=== PATIENT | male | born 1985 | race Caucasian/White ===

== ENCOUNTER 2017-07-23 11:23 | Emergency (ER) | payer SELFPAY ==
[2017-07-23 12:09] VITALS: BP 134/68
--- NOTE | 2017-07-23 12:55 | UC ---
Knee Pain HPI - HPI Summary HPI Summary: Pt presents with right knee pain for 3 months. He tells me that over the last week his pain has gotten worse. He further aggravated his pain by twisting his knee 3-4 days ago. 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 He denies specific injury initially. He is able to ambulate, but with a significant limp. Denies fever, chills, hx of pain/injury or previous surgery. - History of Current Complaint Chief Complaint: UCLowerExtremity Stated Complaint: KNEE INJURY Time Seen by Provider: 07/23/17 12:27 Hx Obtained From: Patient Onset/Duration: Gradual Onset Severity Initially: Moderate Severity Currently: Moderate Pain Intensity: 5 Pain Scale Used: 0-10 Numeric Aggravating Factor(s): Movement, Weight Bearing Alleviating Factor(s): Rest PMH/Surg Hx/FS Hx/Imm Hx Previously Healthy: Yes - Surgical History Surgical History: None - Family History Known Family History: Positive: Unknown - Social History Occupation: Employed Full-time Lives: With Family Alcohol Use: Occasionally Substance Use Type: None Smoking Status (MU): Heavy Every Day Tobacco Smoker Cessation Counseling: Counseled 3+Min - 10 Min Review of Systems Constitutional: Negative Skin: Negative Respiratory: Negative Cardiovascular: Negative Motor: Negative Neurovascular: Negative Musculoskeletal: Decreased ROM - Right knee, Edema - Right knee, Other: - Right knee pain Neurological: Negative Psychological: Negative All Other Systems Reviewed And Are Negative: Yes Physical Exam Triage Information Reviewed: Yes Appearance: Well-Appearing, No Pain Distress, Well-Nourished Vital Signs: Initial Vital Signs Temp 98.4 F 07/23/17 12:06 Pulse 69 07/23/17 12:06 Resp 12 07/23/17 12:06 BP 134/68 07/23/17 12:06 Pulse Ox 100 07/23/17 12:06 Vital Signs Reviewed: Yes Neck: Positive: Supple, Nontender, No Lymphadenopathy Respiratory: Positive: Lungs clear, Normal breath sounds, No respiratory distress, No accessory muscle use Cardiovascular: Positive: RRR, No Murmur, Pulses Normal - Right Popliteal, TP, DP Musculoskeletal: Positive: Strength Intact - Right knee, ROM Limited @ - Right knee due to pain, Edema @ - Right knee - mild, Other: - No obvious bony deformities. No patella apprehension. Negative Mars, A/P drawer, Jennifer, and varus/valgus stress. Neurological: Positive: Alert, Other: - Right LE sensations intact Psychological: Positive: Age Appropriate Behavior Skin: Negative: rashes Knee Pain Course/Dx - Course Course Of Treatment: Knee XR: IMPRESSION: Normal knee radiograph as described above. ISA wrap, crutches, and ibuprofen prn. - Differential Dx/Diagnosis Provider Diagnoses: Right knee pain Discharge - Discharge Plan Condition: Stable Disposition: HOME Patient Education Materials: Knee Pain (ED) Forms: *Work Release Referrals: No Primary Care Phys,NOPCP [Primary Care Provider] - Manuel Dick MD [Medical Doctor] - As Soon As Possible Additional Instructions: If you develop a fever, shortness of breath, chest pain, new or worsening symptoms - please call your PCP or go to the ED. 1) Rest, Ice, and Elevate your knee as much as possible over the next 24-48 hours. 2) Use the crutches as needed for comfort 3) May take ibuprofen 800mg every 6-8 hours as needed for pain and swelling 4) Please call Orthopedics at the number below to schedule a follow up appointment regarding your knee pain.
--- NOTE | 2017-07-23 13:26 | RAD ---
INDICATION: Right knee pain and swelling COMPARISON: None TECHNIQUE: 4 view radiograph of the right knee. FINDINGS: The visualized bones are well-corticated and properly aligned. The joint spaces are properly maintained. There is no radiographic evidence of joint effusion. There is no acute fracture, dislocation or other focal bony abnormality. IMPRESSION: Normal knee radiograph as described above. If the patient's symptoms persist, follow-up imaging is recommended.
== END 2017-07-23 13:45 | disposition home or self-care (01) ==
LOC: UCEAST 11:23
DX: M25.561 Pain in right knee (principal); Z71.6 Tobacco abuse counseling; F17.200 Nicotine dependence, unspecified, uncomplicated
CPT/HCPCS: 99202; G0463

== ENCOUNTER 2017-10-04 06:27 | Day surgery (SDC) | payer OTHER ==
--- NOTE | 2017-09-14 10:30 | HP ---
HISTORY AND PHYSICAL: DATE OF ADMISSION/SURGERY: 10/04/17 SURGEON: Charis Duque MD. * (DICTATED BY LETTY BUCHANAN) PROCEDURE: Right knee arthroscopy with partial medial meniscectomy, possible chondroplasty, possible synovectomy. CHIEF COMPLAINT: Right knee pain. HISTORY OF PRESENT ILLNESS: Mr. Aguilar is a 32-year-old gentleman with complaints of right knee pain. An MRI confirms a medial meniscus tear and he has elected to proceed with surgery, which is scheduled for 10/04/[address] Duque. PAST MEDICAL HISTORY: Denies. PAST SURGICAL HISTORY: 1. Appendectomy. 2. Hernia repair. 3. Tonsillectomy. CURRENT MEDICATIONS: None. ALLERGIES: None. FAMILY HISTORY: Denies. SOCIAL HISTORY: He is a 32-year-old gentleman who lives with his girlfriend. He works for a [employer]. He smokes a pack a day. He denies use of drugs. He uses occasional alcohol. REVIEW OF SYSTEMS: A complete 14-point review of systems was reviewed with the patient, it is all negative or noncontributory. PHYSICAL EXAMINATION GENERAL: He is well developed, well nourished, in no acute distress. VITAL SIGNS: He stands 72 inches tall, weighs 200 pounds. His blood pressure is 134/82, his heart rate is 64. HEENT: Normocephalic, atraumatic. NECK: Supple. No palpable lymph nodes. PULMONARY: The lungs are clear to auscultation bilaterally. CARDIAC: Regular rate and rhythm. Strong S1, S2. ABDOMEN: Soft, nontender, and nondistended. MUSCULOSKELETAL: Right lower extremity, the skin is intact. There is no open wounds or abrasions. There is some mild joint effusion. He has some tenderness over the medial joint line. Positive Jennifer's. Negative Mars' s. 2+ dorsalis pedis pulses. He has intact sensation and his lower extremity muscle group strengths are intact at 5/5. NEUROLOGICAL: He is alert and oriented x3. Cranial nerves II through XII are intact. ASSESSMENT AND PLAN: Mr. Aguilar is a 32-year-old gentleman with complaints of right knee pain. An MRI confirms the medial meniscus tear and he has elected to proceed with the right knee arthroscopy with partial medial meniscectomy, possible chondroplasty, possible synovectomy with surgery scheduled for 10/04/[address] Duque discussed the risks and benefits of the surgery at today's visit, all of his questions were answered. He will follow up with Dr. Duque 2 weeks after the surgery. LETTY BUCHANAN [id number]/[facility] #: [id number] MYLA
[~2017-10-04 06:27] MED LIST: Buffered Lidocaine 0.9% SYRIN* 5 ML/SYR SYRINGE INTRADERM ONE; DiMENhydriNATE IV* 50 MG/ML VIAL IV PUSH PRN; Famotidine TAB* 20 MG PO ONE; Morphine INJ* 2 MG/ML 1 ML CARPUJECT IV PRN; Naloxone* 0.4 MG/ML 1 ML VIAL IV PRN; PROCHLORPERAZINE INJ 5 MG/ML 2 ML VIAL IV PRN; Scopolamine 1.5 mg* PATCH TRANSDERM PRN; fentaNYL* 50 MCG/ML 2 ML VIAL (100 MCG VIAL) IV PRN; oxyCODONE/Acetamin 5/325 MG* TAB PO PRN
[2017-10-04] MEDS ORDERED: ceFAZolin 2 GM PREMIX (*) 2 GM/50 ML BAG IVPB ONE (07:03)
[2017-10-04] MEDS ORDERED: Famotidine TAB* 20 MG ONE (07:03)
[2017-10-04] MEDS ORDERED: Midazolam* 1 MG/ML 5 ML VIAL (5 MG) ONE (07:28)
[2017-10-04] MEDS ORDERED: fentaNYL* 50 MCG/ML 2 ML VIAL (100 MCG VIAL) ONE (07:28)
[2017-10-04] MEDS ORDERED: Ondansetron INJ* 2 MG/ML VIAL ONE (09:03)
[2017-10-04] MEDS ORDERED: Propofol* 10 MG/ML 20 ML BTL IV PUSH ONE (09:03)
[2017-10-04] MEDS ORDERED: Lidocaine 2% PF * 5 ML VIAL ONE (09:03)
[2017-10-04] MEDS ORDERED: Ketorolac INJ* 30 MG/ML 1 ML VIAL ONE (09:03)
[2017-10-04] MEDS ORDERED: EPHEDrine (Pressors)* 50 MG/ML VIAL ONE (09:03)
[2017-10-04] MEDS ORDERED: Dexamethasone IV* 4 MG/ML 1 ML (4 MG) ONE (09:03)
[2017-10-04 09:59] VITALS: BP 144/85
--- NOTE | 2017-10-05 04:53 | OP ---
DATE OF OPERATION: 10/04/17 - [facility] DATE OF : 81 SURGEON: Chairs Duque MD [employer] OPERATOR: LETTY Barrientos ANESTHESIOLOGIST: Dr. Dorsey. ANESTHESIA: General. PRE-OP DIAGNOSIS: Right knee medial meniscal tear. POST-OP DIAGNOSIS: Right knee medial meniscal tear, medial plica. OPERATIVE PROCEDURE: Right knee arthroscopy with partial medial meniscotomy and medial plica excision. COMPLICATIONS: None. ESTIMATED BLOOD LOSS: Less than 25 cc. SPECIMEN: None. BRIEF HISTORY/INDICATIONS: Mr. Aguilar is a 32-year-old gentleman with acute onset of right knee pain, swelling and mechanical symptoms. History and physical exam were consistent with medial meniscal tear and this was confirmed on MRI. Conservative treatment failed and the patient elected to undergo right knee arthroscopy with partial medial meniscectomy. Informed consent was obtained from the patient. He understood the risk for surgery included but were not limited to bleeding, infection, damage to nearby structures, continued pain, need for further surgery, stroke, heart attack, blood clot and . He wished to proceed. INTRAOPERATIVE FINDINGS: Intraoperatively, the patient was noted to have a parrot- beak type tear in the mid portion of the medial meniscus. This was in the white-red zone. This did displace with range of motion of the knee. He also was noted to have a large medial plica which impinged along the patellofemoral joint with range of motion. DESCRIPTION OF PROCEDURE: Mr. Aguilar was identified in the preanesthesia unit. His right lower extremity was marked as a correct operative site. Informed consent was signed and placed in chart. The patient was taken to the operating room and placed under general anesthesia. Right lower extremity was prepped and draped in the usual sterile fashion. Preop time-out was made to correctly identify the patient side and site. Appropriate perioperative antibiotics were given within 1 hour of incision. A 0.5 cm anterolateral portal incision was made with a 15 blade. This was carried down through the capsule layer. Trocar was introduced. As soon as the light and water sources were turned on, there was immediate visualization of the suprapatellar pouch. A tour was performed. Suprapatellar pouch had no significant abnormalities. Patellofemoral compartments had no significant degenerative changes. There was a large medial plica which did impinge along the patellofemoral joint with range of motion. Medial gutters showed no loose body. Medial compartment showed no significant degenerative changes, some minimal grade 2 and perhaps 3 Outerbridge cartilage changes along the medial femoral condyle in a small area of the femoral condylar weightbearing surface. There was an anteriorly displaced parrot-beak type tear involving the middle third of the medial meniscus. ACL and PCL appeared to be intact. The knee was placed in the [id number] position. There were no significant degenerative changes. No obvious meniscal tear. Lateral gutters showed no loose body or other abnormality. Under direct visualization, a medial portal incision was made with a 15-blade. Probe was introduced and a second tour of the knee joint was performed. There were no additional findings noted. Radiofrequency ablation wand and shaver were used to excise the medial plica in a conservative fashion. This was performed until there was no further impingement with range of motion on the patellofemoral joint. A straight biter was used to perform partial medial meniscectomy. Shaver was used to further smooth the edge of the meniscus. Radiofrequency ablation wand was also used to smooth the edge of the meniscus. Probing of the medial meniscus shows no additional tears or slipped fragments. The knee was copiously irrigated with sterile saline. All instruments were reviewed. Incisions were closed using 3-0 nylon suture. Intraarticular injection of 80 mg Depo-Medrol and 6 cc of 0.25% Marcaine was placed in the knee joint. Incisions were covered with sterile Xeroform, 4x4s and Webril. Lewis wrap and cold pack were placed over this. The patient's anesthesia was reversed without difficulty. He was taken to the PACU in stable condition. Intended weightbearing will be weightbearing as tolerated. Intended DVT prophylaxis will be Coumadin with Lovenox bridge. [id number]/[facility] #: [id number] MYLA
[2017-10-07] MEDS ORDERED: Scopolamine PATCH Remove* 1 NOTE MISC PATCH OFF ONE (05:52)
== END 2017-10-04 10:02 | disposition home or self-care (01) ==
LOC: OR 06:27
PROVIDERS: ATTEND Orthopaedic Surgery Adult Reconstructive Orthopaedic Surgery
DX: M23.203 Derangement of unspecified medial meniscus due to old tear or injury, right knee (principal); M67.51 Plica syndrome, right knee; F17.210 Nicotine dependence, cigarettes, uncomplicated
CPT/HCPCS: A9270-GY; J0690; J1100; J1885; J2250; J2405; J2704; J3010

== ENCOUNTER 2018-01-17 14:51 | Day surgery (SDC) | payer OTHER ==
[2018-01-17 15:46] LABS: ABS Basophils 0.1 10^3/ul (0-0.2); ABS Eosinophils 0 10^3/ul (0-0.6); ABS Lymphocytes 1.2 10^3/ul (1.0-4.8); ABS Monocytes 0.5 10^3/ul (0-0.8); ABS Neutrophils 11.7 10^3/ul (1.5-7.7); ABS Nucleated RBC 0 10^3/ul; Eosinophil % 0.3 % (0-6); Hematocrit 50 % (42-52); Hemoglobin 17.4 g/dl (14.0-18.0); Lymphocyte % 8.6 % (25-47); Mean Corpuscular HGB Conc 35 g/dl (31-36); Mean Corpuscular Hemoglobin 31 pg (27-31); Mean Corpuscular Volume 90 fL (80-94); Mean Platelet Volume 7.7 um3 (7.4-10.4); Nucleated Red Blood Cells % 0.2; Platelet Count 282 10^3/ul (150-450); Red Blood Count 5.55 10^6/ul (4.00-5.40); Red Cell Distribution Width 13 % (10.5-15); White Blood Count 13.5 10^3/ul (3.5-10.8)
[2018-01-17 16:04] LABS: EGFR Non-African American 82.7 (>60)
[2018-01-17] MEDS ORDERED: Ondansetron INJ* 2 MG/ML VIAL IV PRN (16:58)
[2018-01-17] MEDS ORDERED: NS 0.9% 1000 ML* 1,000 ML IV ONE (16:58)
[2018-01-17] MEDS ORDERED: Morphine VIAL* 10 MG/ML 1 ML VIAL IV ONE (16:58)
[2018-01-17] MEDS ORDERED: Iohexol 300* (CONTRAST) 10 ML SDV IV ONE (17:08)
[2018-01-17] MEDS ORDERED: Morphine INJ* 2 MG/ML 1 ML SYRINGE (TWO MG - NEW SYRINGE VERSION) ONE (17:13)
--- NOTE | 2018-01-17 17:39 | ED ---
Abdominal Pain/Male - HPI Summary HPI Summary: Complains of right lower quadrant pain, N/V, sweats, chills starting at 8 AM this morning. Abdominal pain described as constant, better with lying down, worse with movement. Patient has been able to keep any food or medication down today. Denies fever, cough, sore throat, CP, SOB, change in bowel movements, change in urine, penile discharge, testicular pain. Medical history is none. Abdominal/pelvic surgical history is appendectomy November 2013. - History of Current Complaint Chief Complaint: EDAbdPain Stated Complaint: ABD PAIN Time Seen by Provider: 01/17/18 16:04 Hx Obtained From: Patient Onset/Duration: Sudden Onset Timing: Constant Severity Initially: Moderate Severity Currently: Moderate Pain Intensity: 7 Pain Scale Used: 0-10 Numeric Location: Discrete At: RLQ Radiates: No Character: Sharp Aggravating Factor(s): Movement Alleviating Factor(s): Position Associated Signs And Symptoms: Positive: Nausea, Vomiting - Allergies/Home Medications Allergies/Adverse Reactions: Allergies Allergy/AdvReac Type Severity Reaction Status Date / Time peanut Allergy Intermediate Hives Verified 01/17/18 17:02 PEANUT BUTTER Allergy Hives Uncoded 10/04/17 07:07 Home Medications: Home Medications NK [No Home Medications Reported] 01/17/18 [History Confirmed 01/17/18] PMH/Surg Hx/FS Hx/Imm Hx Endocrine/Hematology History: Denies: Hx Anticoagulant Therapy, Hx Diabetes, Hx Thyroid Disease Cardiovascular History: Denies: Hx Hypertension, Hx Pacemaker/ICD, Other Cardiovascular Problems/ Disorders Respiratory History: Denies: Other Respiratory Problems/Disorders GI History: Reports: Other GI Disorders - Appendectomy 2012 History: Denies: Hx Dialysis, Hx Renal Disease, Other Problems/Disorders Musculoskeletal History: Reports: Other Musculoskeletal History - Right medial meniscus tear, effusion, hernia repair x2 Denies: Hx Rheumatoid Arthritis, Hx Osteoporosis Sensory History: Denies: Hx Contacts or Glasses, Hx Hearing Aid Opthamlomology History: Denies: Hx Contacts or Glasses Neurological History: Denies: Hx CVA, Other Neuro Impairments/Disorders Psychiatric History: Denies: Hx Panic Disorder - Surgical History Surgery Procedure, Year, and Place: APPENDECTOMY - 2013. HERNIA x2 - as a child. Tonsillectomy Hx Anesthesia Reactions: No Infectious Disease History: No Infectious Disease History: Denies: Traveled Outside the [place] in Last 30 Days - Family History Known Family History: Positive: Unknown - Social History Alcohol Use: Weekly Substance Use Type: Reports: None Smoking Status (MU): Heavy Every Day Tobacco Smoker Type: Cigarettes Amount Used/How Often: 1 ppd Length of Time of Smoking/Using Tobacco: 20 + years Have You Smoked in the Last Year: Yes Review of Systems Positive: Chills Eyes: Negative ENT: Negative Cardiovascular: Negative Respiratory: Negative Positive: Abdominal Pain, Vomiting, Nausea Genitourinary: Negative Musculoskeletal: Negative Skin: Negative Neurological: Negative Psychological: Normal All Other Systems Reviewed And Are Negative: Yes Physical Exam - Summary Physical Exam Summary: Diffusely tender, worse in right lower quadrant. Triage Information Reviewed: Yes Vital Signs On Initial Exam: Initial Vitals Temp Pulse Resp BP Pulse Ox 97 F 55 18 143/79 99 01/17/18 14:57 01/17/18 14:57 01/17/18 14:57 01/17/18 14:57 01/17/18 14:57 Vital Signs Reviewed: Yes Appearance: Positive: Well-Appearing Skin: Positive: Warm Head/Face: Positive: Normal Head/Face Inspection Eyes: Positive: Normal Neck: Positive: Supple Respiratory/Lung Sounds: Positive: Clear to Auscultation Cardiovascular: Positive: Normal Abdomen Description: Positive: McBurney's Point Tenderness Musculoskeletal: Positive: Normal Neurological: Positive: Normal Psychiatric: Positive: Normal AVPU Assessment: Alert - Candice Coma Scale Best Eye Response: 4 - Spontaneous Best Motor Response: 6 - Obeys Commands Best Verbal Response: 5 - Oriented Coma Scale Total: 15 Diagnostics - Vital Signs Vital Signs Temp Pulse Resp BP Pulse Ox 01/17/18 17:23 16 01/17/18 14:57 97 F 55 18 143/79 99 - Laboratory Lab Results: Lab Results 01/17/18 01/17/18 01/17/18 Range/Units 15:28 15:28 15:28 WBC 13.5 H (3.5-10.8) 10^3/ul RBC 5.55 H (4.00-5.40) 10^6/ul Hgb 17.4 (14.0-18.0) g/dl Hct 50 (42-52) % MCV 90 (80-94) fL MCH 31 (27-31) pg MCHC 35 (31-36) g/dl RDW 13 (10.5-15) % Plt Count 282 (150-450) 10^3/ul MPV 7.7 (7.4-10.4) um3 Neut % (Auto) 86.5 H (38-83) % Lymph % (Auto) 8.6 L (25-47) % [place] % (Auto) 4.0 (0-7) % Eos % (Auto) 0.3 (0-6) % Baso % (Auto) 0.6 (0-2) % Absolute Neuts (auto) 11.7 H (1.5-7.7) 10^3/ul Absolute Lymphs (auto) 1.2 (1.0-4.8) 10^3/ul Absolute Monos (auto) 0.5 (0-0.8) 10^3/ul Absolute Eos (auto) 0 (0-0.6) 10^3/ul Absolute Basos (auto) 0.1 (0-0.2) 10^3/ul Absolute Nucleated RBC 0 10^3/ul Nucleated RBC % 0.2 Sodium 140 (135-145) mmol/L Potassium 4.2 (3.5-5.0) mmol/L Chloride 101 (101-111) mmol/L Carbon Dioxide 31 (22-32) mmol/L Anion Gap 8 (2-11) mmol/L BUN 13 (6-24) mg/dL Creatinine 1.03 (0.67-1.17) mg/dL Est GFR ( Amer) 100.0 (>60) Est GFR (Non-Af Amer) 82.7 (>60) BUN/Creatinine Ratio 12.6 (8-20) Glucose 131 H (70-100) mg/dL Lactic Acid 0.9 (0.5-2.0) mmol/L Calcium 10.0 (8.6-10.3) mg/dL Total Bilirubin 0.40 (0.2-1.0) mg/dL AST 15 (13-39) U/L ALT 17 (7-52) U/L Alkaline Phosphatase 117 H (34-104) U/L C-Reactive Protein 5.14 (<8.01) mg/L Total Protein 7.6 (6.4-8.9) g/dL Albumin 4.9 (3.2-5.2) g/dL Globulin 2.7 (2-4) g/dL Albumin/Globulin Ratio 1.8 (1-3) Lipase < 10 L (11.0-82.0) U/L Result Diagrams: 01/17/18 15:28 01/17/18 15:28 Lab Statement: Any lab studies that have been ordered have been reviewed, and results considered in the medical decision making process. - CT ab/pel CT Interpretation: Positive (See Comments) - Potential appendicolith CT Interpretation Completed By: Radiologist Abdominal Pain Fem Course/Dx - Course Course Of Treatment: Complains of right lower quadrant pain, N/V, sweats, chills starting at 8 AM this morning. Abdominal pain described as constant, better with lying down, worse with movement. Patient has been able to keep any food or medication down today. Denies fever, cough, sore throat, CP, SOB, change in bowel movements, change in urine, penile discharge, testicular pain. Medical history is none. Abdominal/pelvic surgical history is appendectomy November 2013. Diffusely tender, worse in right lower quadrant. Vital signs within normal limits and stable. Elevated white count 13.5. CT positive for possible appendicolith despite history of appendectomy. Discussed patient with Dr Gilbert who will admit for surgery - Diagnoses Provider Diagnoses: Appendicolith Discharge - Sign-Out/Discharge Documenting (check all that apply): Patient Departure - Discharge Plan Condition: Fair Disposition: ADMITTED TO [facility] - Billing Disposition and Condition Condition: FAIR Disposition: Admitted to [facility]
--- NOTE | 2018-01-17 18:23 | RAD ---
CLINICAL HISTORY: Right lower quadrant pain. Relevant surgical history includes an appendectomy. COMPARISON: None TECHNIQUE: Contrast enhanced CT examination of the abdomen and pelvis from the lung bases through the initial tuberosities. The patient received 105 mL Omnipaque 300 intravenously prior to imaging.Patient did not receive any oral contrast. FINDINGS: VISUALIZED LUNG BASES: The visualized lung bases are grossly clear. There is no pleural effusion. ABDOMEN AND PELVIS: The liver, spleen, pancreas and adrenal glands are grossly normal in appearance. The gallbladder is normal. The kidneys are normal in appearance without focal mass, calcification or signs of hydronephrosis. Evaluation of the gastrointestinal tract is limited the absence of oral contrast. The small and large bowel are not distended. At the right lower quadrant contiguous with the base of the cecum there is what appears to be a fluid-filled tubular structure measuring 1.5 cm in diameter (sagittal image 52). In the segment of this tubular structure that is more proximal to the base of the cecum there is a hyperattenuating focus measuring 9 mm in greatest dimension (coronal image 36). This finding appears to be separate from the ileocecal junction as identified on coronal plane image 37. More distally the colon does not exhibit any obvious abnormalities. There is no gross retroperitoneal or mesenteric lymphadenopathy. The pelvic viscera is normal in appearance. The abdominal aorta and iliac arteries are normal in course and diameter. \\There are no sinister bone lesions. IMPRESSION: At the base of the cecum there is what appears to be a contiguous fluid-filled tubular structure measuring 1.5 cm in diameter with a 9 mm hyperattenuating focus at its proximal portion. The appearance is most consistent with appendicitis but the patient's surgical history includes "appendectomy in 2013". Please verify the patient in fact underwent appendectomy. The patient did undergo appendectomy the differential diagnosis includes an "appendiceal stump" that has developed appendicitis due to an appendicolith or possibly an appendicolith that is free in the right lower quadrant peritoneal fat. Diverticulitis could be considered as well but is considered less likely. Findings discussed over the telephone with Dr. Bates at 1819 hours on January 17, 2018
--- NOTE | 2018-01-17 18:50 | ED ---
Progress - Progress Note Progress Note: I supervised the care of the physician assistant professor of english and I performed a history and physical on this patient. History: Right lower quadrant pain with history of prior appendectomy. Was done at [facility] for gangrenous appendix per patient. Physical exam: Moderate to severe tenderness in the right lower quadrant with guarding over the area of a prior surgical scar. Flushed in appearance. Plan: CT positive for what looks like appendicolith with adjacent inflammation. Concern for acute appendicitis despite his stated history. This discussed with surgery who will consult. Disposition per surgery. Course/Dx - Course Course Of Treatment: Complains of right lower quadrant pain, N/V, sweats, chills starting at 8 AM this morning. Abdominal pain described as constant, better with lying down, worse with movement. Patient has been able to keep any food or medication down today. Denies fever, cough, sore throat, CP, SOB, change in bowel movements, change in urine, penile discharge, testicular pain. Medical history is none. Abdominal/pelvic surgical history is appendectomy November 2013. Diffusely tender, worse in right lower quadrant. Vital signs within normal limits and stable. Elevated white count 13.5. Discharge - Sign-Out/Discharge Documenting (check all that apply): Patient Departure - Discharge Plan Condition: Fair Disposition: ADMITTED TO [facility] Referrals: No Primary Care Phys,NOPCP [Primary Care Provider] - - Billing Disposition and Condition Condition: FAIR Disposition: Admitted to [facility]
[2018-01-17 18:56] LABS: Urine Appearance Clear; Urine Blood 1+ (Negative); Urine Color Yellow; Urine Ketones 1+ (Negative); Urine Protein Negative (Negative); Urine Red Blood Cell Trace(0-2/hpf) (Absent); Urine Specific Gravity > 1.060 (1.010-1.030); Urine Urobilinogen Negative (Negative); Urine White Blood Cell Trace(0-5/hpf) (Absent)
[2018-01-17] MEDS ORDERED: ceFOXitin 2 GM IVPREMIX* 2 GM/50 ML BAG ONE (19:44)
[2018-01-17] MEDS ORDERED: Bupivacaine 0.25% W/EPI* 10 ML SDV ONE (20:02)
[2018-01-17] MEDS ORDERED: oxyCODONE/Acetamin 5/325 MG* TAB PO PRN (20:06)
[2018-01-17] MEDS ORDERED: HYDROmorphone INJ* 0.5 MG/0.5 ML SYRINGE IV PRN (20:06)
[2018-01-17] MEDS ORDERED: Naloxone* 0.4 MG/ML 1 ML VIAL IV PRN (20:06)
[2018-01-17] MEDS ORDERED: DiMENhydriNATE IV* 50 MG/ML VIAL IV PUSH PRN (20:06)
[2018-01-17] MEDS ORDERED: Midazolam* 1 MG/ML 5 ML VIAL (5 MG) ONE (20:16)
[2018-01-17] MEDS ORDERED: fentaNYL* 50 MCG/ML 2 ML VIAL (100 MCG VIAL) ONE ×2 (20:16→20:42)
[2018-01-17] MEDS ORDERED: Dexamethasone IV* 4 MG/ML 1 ML (4 MG) ONE (20:44)
[2018-01-17] MEDS ORDERED: Propofol* 10 MG/ML 20 ML BTL IV PUSH ONE (20:44)
[2018-01-17] MEDS ORDERED: Lidocaine 2% PF * 5 ML VIAL ONE (20:44)
[2018-01-17] MEDS ORDERED: Ketorolac INJ* 30 MG/ML 1 ML VIAL ONE (20:44)
[2018-01-17] MEDS ORDERED: Ondansetron INJ* 2 MG/ML VIAL ONE (20:44)
[2018-01-17] MEDS ORDERED: HYDROmorphone INJ* 0.5 MG/0.5 ML SYRINGE ONE (21:17)
[2018-01-17] MEDS ORDERED: oxyCODONE/Acetamin 5/325 MG* TAB ONE (22:33)
[2018-01-17 23:02] VITALS: BP 118/65
--- NOTE | 2018-01-18 00:13 | HP ---
HISTORY AND PHYSICAL: DATE OF ADMISSION: 01/17/18 CHIEF COMPLAINT: Abdominal pain. HISTORY OF PRESENT ILLNESS: The patient is a 32-year-old male who was in his usual state of health woke this morning with generalized abdominal pain, more central and it gradually shifted more towards the right lower quadrant as the day progressed and then he presented to the emergency room. He has not been particularly anorexic. No nausea, no vomiting. No fever, chills. No diarrhea. No accident, injury or trauma. PAST MEDICAL HISTORY: Reveals appendectomy done open at [facility] for gangrenous appendix about 4 years ago. He spent about 10 days in the hospital at that time. He made a complete recovery. He also had bilateral inguinal hernia repairs done as a child and he had right knee scope done by Dr. Duque a few months ago here. He tolerated the surgeries well. MEDICATIONS: He is on no regular medications. ALLERGIES: No medical allergies other than PEANUTS. FAMILY HISTORY: Benign. No bleeding tendencies or anesthesia reactions or GI problems. SOCIAL HISTORY: He is a smoker and occasional drinker. Works for a [employer]. He is usually fit and active. REVIEW OF SYSTEMS: Multisystem review is negative for cardiac disease, pulmonary disease. No hepatobiliary. No diabetes, thyroid, or other endocrine. No history. No kidney stones or bladder infections. No GI history. No colitis or Crohn's disease or other intestinal problems. No neuromuscular or psych issues. PHYSICAL EXAMINATION GENERAL: He is a well-developed, well-nourished muscular appearing male. He does not appear acutely ill. He does appear uncomfortable. VITAL SIGNS: Show temperature 98.3, pulse 74 and regular, respiration 16 and unlabored, O2 saturation 98%, blood pressure 167/85. He is 6 feet tall, 200 pounds with a BMI of 27. NECK: Supple without any adenopathy. LUNGS: Clear bilaterally. HEART: Regular. No abnormal sounds. ABDOMEN: Soft and quite tender in the right lower quadrant with focal rebound tenderness. There is a well healed scar in the right lower quadrant and he has faint scars consistent with previous hernia surgery. EXTREMITIES: Well perfused and without edema. SKIN: Warm and well perfused. He is not diaphoretic. He is not jaundiced. LABORATORY STUDIES: Show a white blood count elevated at 13,000. Electrolytes are normal. CT scan shows a fecalith and inflammatory change and dilated tubular structure consistent with appendicitis. Given his history of previous appendectomy, I suspect this is a fecalith and a stump appendicitis. I discussed this with him and I recommend laparoscopic appendectomy. He understands the procedure, the rationale, the risks and the uncertainties of the diagnosis and agrees to proceed in the fashion outlined. [id number] #: [id number] MTDD
--- NOTE | 2018-01-18 11:50 | OP ---
DATE OF OPERATION: 01/17/18 [facility] DATE OF : 81 SURGEON: Star Gilbert MD PRE KINDERGARTEN TEACHER: None. ANESTHESIOLOGIST: Mena Forrest MD ANESTHESIA: General anesthetic, local infiltration. PRE-OP DIAGNOSIS: Stump appendicitis. POST-OP DIAGNOSIS: Stump appendicitis. OPERATIVE PROCEDURE: Laparoscopic appendectomy. DESCRIPTION OF PROCEDURE: The patient was supine on the operating room table. After adequate general anesthetic, compression stockings, Sarah Hugger warmer, and intravenous antibiotics, the abdomen was prepped with antiseptic and draped in a sterile fashion. Local infiltrative anesthesia was administered. A small umbilical incision was created. Blunt port cannula was placed. Insufflation was carried out with carbon dioxide. Additional cannulae, 5 mm left lower quadrant and left mid abdomen, were placed through small wounds under direct vision. There were multiple adhesions in the right lower quadrant consistent with history of previous appendicitis. Omental adhesions were taken down off the abdominal sidewall and out of the pelvis to mobilize the cecum upward. There was omentum tacked down over the top of the cecum in the terminal ileum and this was dissected off as well. Nestled in between the terminal ileum and the cecum was an inflammatory mass of approximately 2 x 3 cm. This was consistent with stump appendicitis. This was dissected until the base of the appendix could be identified and this was divided using a zambrano load of the Endo KIESHA stapler. The fatty attachments were divided using a cameron load of the stapler. This was placed in a retrieval bag and brought out through the umbilical site. This was opened on a side table to confirm that the fecalith had indeed been retrieved. The operative field was irrigated with warm saline solution. Free fluid was suctioned out. Hemostasis was excellent. The staple lines were in good condition. The cannulae were removed. Pneumoperitoneum was allowed to escape. The umbilical fascia was closed with 0 Vicryl, skin with 5- 0 Vicryl followed by Steri-Strips. He tolerated the procedure well. He was awakened and brought to Recovery in good condition. No complications. No drains. Pathologic specimen was stump of appendix. Sponge and instrument counts correct. Estimated blood loss 30 mL. Note: This procedure was significantly more difficult and time consuming than usual. [id number]/[facility] #: [id number] [facility]
== END 2018-01-17 23:11 | disposition home or self-care (01) ==
LOC: ED 14:51 → OR 19:27
PROVIDERS: ATTEND Surgery
DX: K35.89 Other acute appendicitis (principal); R10.31 Right lower quadrant pain; R11.2 Nausea with vomiting, unspecified; Z72.0 Tobacco use
CPT/HCPCS: 36415; 74177; 80053; 81003; 81015; 83605; 83690; 85025; 86140; 87086; 88304; 99284; A9270-GY; J0694; J1100; J1170; J1885; J2250; J2270; J2405; J2704; J3010; Q9967

== ENCOUNTER 2018-01-18 20:27 | Observation (INO) | payer OTHER ==
[2018-01-18] MEDS ORDERED: NS 0.9% 1000 ML*IV.FLUID IV ONE (21:22)
[2018-01-18] MEDS ORDERED: Acetaminophen TAB* 325 MG PO ONE (21:23)
[2018-01-18 21:46] LABS: ABS Basophils 0 10^3/ul (0-0.2); ABS Eosinophils 0 10^3/ul (0-0.6); ABS Lymphocytes 0.4 10^3/ul (1.0-4.8); ABS Monocytes 0.7 10^3/ul (0-0.8); ABS Neutrophils 7.4 10^3/ul (1.5-7.7); ABS Nucleated RBC 0 10^3/ul; Eosinophil % 0.5 % (0-6); Hematocrit 42 % (42-52); Hemoglobin 14.5 g/dl (14.0-18.0); Lymphocyte % 5.1 % (25-47); Mean Corpuscular HGB Conc 35 g/dl (31-36); Mean Corpuscular Hemoglobin 31 pg (27-31); Mean Corpuscular Volume 89 fL (80-94); Mean Platelet Volume 7.2 um3 (7.4-10.4); Nucleated Red Blood Cells % 0.1; Platelet Count 162 10^3/ul (150-450); Red Blood Count 4.67 10^6/ul (4.00-5.40); Red Cell Distribution Width 13 % (10.5-15); White Blood Count 8.5 10^3/ul (3.5-10.8)
[2018-01-18] MEDS ORDERED: Ibuprofen TAB* 800 MG PO ONE (21:46)
[2018-01-18] MEDS ORDERED: Piperacillin/Tazobac ADVAN(*) 3.375 GM in NS 0.9% 100 ML* 100 ML IVPB ONE (21:50)
[2018-01-18 21:54] LABS: INR 0.98 (0.77-1.02)
[2018-01-18 22:02] LABS: EGFR Non-African American 86.5 (>60)
[2018-01-18] MEDS ORDERED: Iohexol 300* (CONTRAST) 10 ML SDV IV ONE (22:17)
[2018-01-18] MEDS ORDERED: Potassium Chlor TAB* 20 MEQ TAB.ER PO ONE (22:35)
--- NOTE | 2018-01-18 22:52 | ED ---
HPI Febrile Illness - HPI Summary HPI Summary: This is beulahe Reese Kraft documenting for attending Dr. Micha Fitzpatrick MD. A 32 y/o male presents to ED c/o fever reaching 5/10 in severity. As per triage , "Pt brought in for fever after having surgery last night. pt states last dose of ibuprofen 800mg 1.5 hrs ago. pt last dose tylenol was 1400". According to the patient his appendix was taken out for the second time last night. Once the patient checked out around midnight last night, he was fine that carried out through the day until 1999 today. He started spiking a fever with a temperature of 100 F. Patient has no appetite changes and has been eating today , however, he has not had any stool, just gas. Denies any urinary issues and SOB , but has a sore throat and cough. It was noted that his appendix was taken out the first time in [place] and the second time [place] [facility] [place]. He took 800 mg of Ibuprofen at 1930. - History of Current Complaint Chief Complaint: EDFever Time Seen by Provider: 01/18/18 21:29 Hx Obtained From: Patient Onset/Duration: Started Hours Ago, Still Present, Worse Since Timing: Constant Initial Severity: Moderate Current Severity: Moderate Pain Intensity: 5 Pain Scale Used: 0-10 Numeric Aggravating Factors: Nothing Alleviating Factors: Nothing Associated Signs and Symptoms: Cough, Sore Throat - Allergy/Home Medications Allergies/Adverse Reactions: Allergies Allergy/AdvReac Type Severity Reaction Status Date / Time peanut Allergy Intermediate Hives Verified 01/17/18 17:02 PEANUT BUTTER Allergy Hives Uncoded 10/04/17 07:07 PMH/Surg Hx/FS Hx/Imm Hx Endocrine/Hematology History: Denies: Hx Anticoagulant Therapy, Hx Diabetes, Hx Thyroid Disease Cardiovascular History: Denies: Hx Hypertension, Hx Pacemaker/ICD, Other Cardiovascular Problems/ Disorders Respiratory History: Denies: Other Respiratory Problems/Disorders GI History: Reports: Other GI Disorders - Appendectomy 2013 History: Denies: Hx Dialysis, Hx Renal Disease, Other Problems/Disorders Musculoskeletal History: Reports: Other Musculoskeletal History - Right medial meniscus tear, effusion, hernia repair x2 Denies: Hx Rheumatoid Arthritis, Hx Osteoporosis Sensory History: Denies: Hx Contacts or Glasses, Hx Hearing Aid Opthamlomology History: Denies: Hx Contacts or Glasses Neurological History: Denies: Hx CVA, Other Neuro Impairments/Disorders Psychiatric History: Denies: Hx Panic Disorder - Surgical History Surgery Procedure, Year, and Place: APPENDECTOMY - 2014. HERNIA x2 - as a child. Tonsillectomy Hx Anesthesia Reactions: No Infectious Disease History: No Infectious Disease History: Denies: Traveled Outside the [place] in Last 30 Days - Family History Known Family History: Negative: Hypertension, Diabetes - Social History Alcohol Use: Weekly Substance Use Type: Reports: None Smoking Status (MU): Heavy Every Day Tobacco Smoker Type: Cigarettes Amount Used/How Often: 1 ppd Length of Time of Smoking/Using Tobacco: 20 + years Have You Smoked in the Last Year: Yes Review of Systems Positive: Fever Positive: Sore Throat Positive: Cough. Negative: Shortness Of Breath Positive: Other - POSITIVE: No stool and appetite changes, has gas. Positive: no symptoms reported Skin: Negative All Other Systems Reviewed And Are Negative: Yes Physical Exam - Summary Physical Exam Summary: VITAL SIGNS: Reviewed. GENERAL: Patient is a well-developed and nourished male who is lying comfortable in the stretcher. Patient is not in any acute respiratory distress. HEAD AND FACE: No signs of trauma. No ecchymosis, hematomas or skull depressions. No sinus tenderness. EYES: PERRLA, EOMI x 2, No injected conjunctiva, no nystagmus. EARS: Hearing grossly intact. Ear canals and tympanic membranes are within normal limits. MOUTH: Oropharynx within normal limits. NECK: Supple, trachea is midline, no adenopathy, no JVD, no carotid bruit, no c- spine tenderness, neck with full ROM. CHEST: Symmetric, no tenderness at palpation LUNGS: Clear to auscultation bilaterally. No wheezing or crackles. CVS: Regular rate and rhythm, S1 and S2 present, no murmurs or gallops appreciated. ABDOMEN: Soft.. No signs of distention. No rebound no guarding, and no masses palpated. Bowel sounds are normal. Laparoscopic ports. Mild diffuse tenderness, more in the RUQ. EXTREMITIES: FROM in all major joints, no edema, no cyanosis or clubbing. NEURO: Alert and oriented x 3. No acute neurological deficits. Speech is normal and follows commands. SKIN: Dry and warm Triage Information Reviewed: Yes Vital Signs On Initial Exam: Initial Vitals Temp Pulse Resp BP Pulse Ox 103.4 F 113 22 166/88 95 08//18 20:34 01/18/18 20:34 01/18/18 20:34 01/18/18 20:34 01/18/18 20:34 Vital Signs Reviewed: Yes Diagnostics - Vital Signs Vital Signs Temp Pulse Resp BP Pulse Ox 01/18/18 20:34 103.4 F 113 22 166/88 95 - Laboratory Lab Results: Lab Results 01/18/18 01/18/18 01/18/18 Range/Units 21:32 21:32 21:32 WBC 8.5 (3.5-10.8) 10^3/ul RBC 4.67 (4.00-5.40) 10^6/ul Hgb 14.5 (14.0-18.0) g/dl Hct 42 (42-52) % MCV 89 (80-94) fL MCH 31 (27-31) pg MCHC 35 (31-36) g/dl RDW 13 (10.5-15) % Plt Count 162 (150-450) 10^3/ul MPV 7.2 L (7.4-10.4) um3 Neut % (Auto) 86.5 H (38-83) % Lymph % (Auto) 5.1 L (25-47) % [place] % (Auto) 7.7 H (0-7) % Eos % (Auto) 0.5 (0-6) % Baso % (Auto) 0.2 (0-2) % Absolute Neuts (auto) 7.4 (1.5-7.7) 10^3/ul Absolute Lymphs (auto) 0.4 L (1.0-4.8) 10^3/ul Absolute Monos (auto) 0.7 (0-0.8) 10^3/ul Absolute Eos (auto) 0 (0-0.6) 10^3/ul Absolute Basos (auto) 0 (0-0.2) 10^3/ul Absolute Nucleated RBC 0 10^3/ul Nucleated RBC % 0.1 INR (Anticoag Therapy) 0.98 (0.77-1.02) APTT 27.6 (26.0-36.3) seconds Sodium 135 (135-145) mmol/L Potassium 3.3 L (3.5-5.0) mmol/L Chloride 100 L (101-111) mmol/L Carbon Dioxide 26 (22-32) mmol/L Anion Gap 9 (2-11) mmol/L BUN 10 (6-24) mg/dL Creatinine 0.99 (0.67-1.17) mg/dL Est GFR ( Amer) 104.7 (>60) Est GFR (Non-Af Amer) 86.5 (>60) BUN/Creatinine Ratio 10.1 (8-20) Glucose 169 H (70-100) mg/dL Lactic Acid (0.5-2.0) mmol/L Calcium 8.7 (8.6-10.3) mg/dL Total Bilirubin 0.50 (0.2-1.0) mg/dL AST 15 (13-39) U/L ALT 15 (7-52) U/L Alkaline Phosphatase 86 (34-104) U/L Troponin I 0.01 (<0.04) ng/mL C-Reactive Protein 170.92 H (<8.01) mg/L Total Protein 6.3 L (6.4-8.9) g/dL Albumin 3.9 (3.2-5.2) g/dL Globulin 2.4 (2-4) g/dL Albumin/Globulin Ratio 1.6 (1-3) 01/18/18 Range/Units 21:32 WBC (3.5-10.8) 10^3/ul RBC (4.00-5.40) 10^6/ul Hgb (14.0-18.0) g/dl Hct (42-52) % MCV (80-94) fL MCH (27-31) pg MCHC (31-36) g/dl RDW (10.5-15) % Plt Count (150-450) 10^3/ul MPV (7.4-10.4) um3 Neut % (Auto) (38-83) % Lymph % (Auto) (25-47) % [place] % (Auto) (0-7) % Eos % (Auto) (0-6) % Baso % (Auto) (0-2) % Absolute Neuts (auto) (1.5-7.7) 10^3/ul Absolute Lymphs (auto) (1.0-4.8) 10^3/ul Absolute Monos (auto) (0-0.8) 10^3/ul Absolute Eos (auto) (0-0.6) 10^3/ul Absolute Basos (auto) (0-0.2) 10^3/ul Absolute Nucleated RBC 10^3/ul Nucleated RBC % INR (Anticoag Therapy) (0.77-1.02) APTT (26.0-36.3) seconds Sodium (135-145) mmol/L Potassium (3.5-5.0) mmol/L Chloride (101-111) mmol/L Carbon Dioxide (22-32) mmol/L Anion Gap (2-11) mmol/L BUN (6-24) mg/dL Creatinine (0.67-1.17) mg/dL Est GFR ( Amer) (>60) Est GFR (Non-Af Amer) (>60) BUN/Creatinine Ratio (8-20) Glucose (70-100) mg/dL Lactic Acid 1.7 (0.5-2.0) mmol/L Calcium (8.6-10.3) mg/dL Total Bilirubin (0.2-1.0) mg/dL AST (13-39) U/L ALT (7-52) U/L Alkaline Phosphatase (34-104) U/L Troponin I (<0.04) ng/mL C-Reactive Protein (<8.01) mg/L Total Protein (6.4-8.9) g/dL Albumin (3.2-5.2) g/dL Globulin (2-4) g/dL Albumin/Globulin Ratio (1-3) Result Diagrams: 01/18/18 21:32 01/18/18 21:32 Lab Statement: Any lab studies that have been ordered have been reviewed, and results considered in the medical decision making process. - Radiology CXR Radiology Interpretation Completed By: ED Physician - Bilateral atelectasis versus infiltrate. Pending official report. - CT CT CHEST/ABD/PEL CT Interpretation Completed By: Radiologist - CHEST: No acute findings in the chest. ABDOMEN/PELVIS: Expected postoperative findings after appendectomy. ED physician reviewed this radiology report. Course/Dx - Course Course Of Treatment: A 32 y/o male presents to ED c/o fever reaching 5/10 in severity. A chest/abdomen/pelvis CT revealed - CHEST: No acute findings in the chest. ABDOMEN/PELVIS: Expected postoperative findings after appendectomy. A CXR revealed bilateral atelectasis versus infiltrate. In the ED course, the patient recieved Tylenol, Augmentin, Motrin, Omnipaque, Klor Con Er Tab and IV fluids. Patient care was discussed with Dr. Shepherd who recommended patient be admitted, otherwise, discharged with Augmentin. Plan was discussed with patient who would like to go home. Patient will be discharged with a diagnosis of postoperative fever with Augmentin. Patient is to follow up with Dr. Gilbert tomorrow. Patient is also to take Motrin as needed for fever. Patient is agreeable with this plan. UPDATE: [id number] - Patient changed mind and would like to be admitted to hospital. Dr. Shepherd accepts patient for admission and is speaking to nursing staff with plan via phone. - Diagnoses Provider Diagnoses: Postoperative fever - Provider Notifications Discussed Care Of Patient With: Aleksandar Shepherd Time Discussed With Above Provider: 23:31 Instructed by Provider To: Other - Reviewed CAT scan results with Dr. Shepherd. He recommends admiting patient, otherwise send home with Augmentin. Plan was discussed with patient and he rather go home. 0002 - Dr. Shepherd accepts patient for admission. Discharge - Sign-Out/Discharge Documenting (check all that apply): Patient Departure - ADMIT - Discharge Plan Condition: Stable Disposition: ADMITTED TO [facility]
[2018-01-18] MEDS ORDERED: Amoxicillin/Clavulanate TAB* 875 MG PO ONE (23:47)
[2018-01-18 23:48] LABS: Urine Appearance Clear; Urine Blood Negative (Negative); Urine Color Straw; Urine Ketones Negative (Negative); Urine Protein Negative (Negative); Urine Specific Gravity 1.023 (1.010-1.030); Urine Urobilinogen Negative (Negative)
[2018-01-19] MEDS ORDERED: Ketorolac INJ* 30 MG/ML 1 ML VIAL ONE (00:09)
[2018-01-19] MEDS ORDERED: Ketorolac INJ* 30 MG/ML 1 ML VIAL IV PUSH ONE (00:13)
[2018-01-19] MEDS ORDERED: oxyCODONE/Acetamin 5/325 MG* TAB PO PRN (01:22)
[2018-01-19] MEDS ORDERED: Metoclopramide IV* 5 MG/ML 2 ML VIAL IV PRN (01:23)
[2018-01-19] MEDS ORDERED: Ketorolac INJ* 30 MG/ML 1 ML VIAL IV PRN (01:23)
[2018-01-19] MEDS: ZOSYN 3.375 GM Q6H - Intermittant 30 min Infusion IVPB SCH ×4 (04:04→10:18)
--- NOTE | 2018-01-19 07:11 | RAD ---
INDICATION: Fever 24 hours after appendectomy. COMPARISON: None. TECHNIQUE: Single AP portable view of the chest was obtained. FINDINGS: Image quality is compromised due to the relative inferiority of a portable chest x-ray. The heart and mediastinum exhibit normal size and contour. The lungs are grossly clear. There is no evidence of a large pleural effusion. Visualized bones are normal for the patient's age. IMPRESSION: No radiographic evidence for acute cardiopulmonary abnormality on this portable chest x-ray.
--- NOTE | 2018-01-19 07:24 | RAD ---
INDICATION: Fever 24 hours after appendectomy COMPARISON: CT abdomen pelvis January 17, 2018 TECHNIQUE: Multidetector CT images of the chest, abdomen and pelvis were obtained from the lung apices to the ischial tuberosities following the injection of 121 mL Omnipaque 300. . CHEST: There is pleural-based linear density at the dependent bilateral lower lobes most consistent with atelectasis post surgery. Otherwise the lungs are clear. There are no large pleural effusions. There is no mediastinal or hilar lymphadenopathy. The heart and major vascular structures are grossly normal in appearance. ABDOMEN & PELVIS: The liver, spleen, pancreas and adrenal glands are grossly normal in appearance. The gallbladder is normal. The kidneys are normal in appearance without focal mass, calcification or signs of hydronephrosis. On the delayed phase images contrast is symmetrically and promptly excreted. Evaluation of the gastrointestinal tract is limited without oral contras. The small and large bowel are not distended. The appendix is surgically absent. The appendiceal stump and appendicolith seen on the previous CT examination have been removed. There is surgical material in the right lower quadrant adjacent to the base of the cecum. There is infiltration of the surrounding mesenteric fat and scattered foci of free air in the peritoneum, expected postsurgical findings.. There is no gross retroperitoneal or mesenteric lymphadenopathy. The pelvic viscera is normal in appearance. The abdominal aorta and iliac arteries are normal in course and diameter. Degenerative changes of the thoracic and lumbar spine includes loss of intervertebral disc height at multiple levels.. There are no sinister bone lesions. IMPRESSION: 1. Linear density at the dependent bilateral lower lobes is consistent with postoperative atelectasis. 2. The patient is status post appendectomy including removal of a previously identified appendicolith. Expected postsurgical findings are noted.
[2018-01-19 13:41] VITALS: BP 133/73
--- NOTE | 2018-01-19 14:39 | PN ---
Progress Note - Progress Note Date of Service: 01/19/18 Note: S: patient seen ~ 1200. Pain controlled w/ Percocet and Toradol. Obdulio diet. Fever has been trending down. Passing flatus; + BM. O: Vital Signs - 8 hr 01/19/18 01/19/18 01/19/18 07:19 08:53 10:29 Temperature 100.2 F Pulse Rate 79 Respiratory 16 18 18 Rate Blood Pressure 135/63 (mmHg) O2 Sat by Pulse 97 97 Oximetry 01/19/18 01/19/18 13:31 13:36 Temperature 99.5 F Pulse Rate 76 Respiratory 16 16 Rate Blood Pressure 133/73 (mmHg) O2 Sat by Pulse 98 Oximetry Intake and Output Last 24 Hours 01/17/18 01/18/18 01/19/18 01/20/18 06:59 06:59 06:59 06:59 Intake Total 160 2225 Output Total 350 400 Balance -190 1825 Weight 200 lb Intake: IV Fluids 110 1613 ABX - PIPERACILLIN 110 113 LR 750 IVPB 212 ABX - PIPERACILLIN 106 Oral 50 400 Output: Urine 350 400 Other: Estimated Void Medium Date of Last Bowel 01/19/18 Movement # Bowel Movements 1 Estimated Stool Amount Medium Gen: WN; NAD Heart: reg Lungs: clear Abd: +BS; lap sites ok; soft; mild to mod RLQ tenderness; less tenderness at incision sites. Labs: Laboratory Tests 01/18/18 01/18/18 01/18/18 21:32 21:32 21:32 WBC 8.5 Hgb 14.5 Neut % (Auto) 86.5 H Lactic Acid 1.7 C-Reactive Protein 170.92 H 01/19/18 00:57 WBC Hgb Neut % (Auto) Lactic Acid 0.6 C-Reactive Protein A: 2 days s/p lap appy for "stump appendicitis" w/ postop fever, improved P: ok for d/c home on Augmentin; instructions reviewed; office f/u early next wk ; discussed w/ Dr. Gilbert
== END 2018-01-19 15:24 | disposition home or self-care (01) ==
LOC: ED 20:27 → SSU 01-19 00:32
PROVIDERS: ADMIT Surgery; ATTEND Surgery
DX: R50.82 Postprocedural fever (principal); Z90.89 Acquired absence of other organs; R05 Cough; J02.9 Acute pharyngitis, unspecified; F17.210 Nicotine dependence, cigarettes, uncomplicated; Z91.010 Allergy to peanuts
CPT/HCPCS: 36415; 71045; 71260; 74177; 80053; 81003; 83605; 84484; 85025; 85610; 85730; 86140; 87040; 87076; 87205; 96365; 96375; 99284; A9270-GY; G0378; J1885; J2543

== ENCOUNTER 2018-04-17 16:00 | Emergency (ER) | payer OTHER ==
[2018-04-17 18:53] LABS: ABS Basophils 0.1 10^3/ul (0-0.2); ABS Eosinophils 0.3 10^3/ul (0-0.6); ABS Lymphocytes 3.1 10^3/ul (1.0-4.8); ABS Monocytes 0.6 10^3/ul (0-0.8); ABS Neutrophils 3.9 10^3/ul (1.5-7.7); ABS Nucleated RBC 0 10^3/ul; Eosinophil % 3.9 % (0-6); Hematocrit 44 % (42-52); Hemoglobin 14.9 g/dl (14.0-18.0); Lymphocyte % 38.6 % (25-47); Mean Corpuscular HGB Conc 34 g/dl (31-36); Mean Corpuscular Hemoglobin 30 pg (27-31); Mean Corpuscular Volume 88 fL (80-94); Mean Platelet Volume 7.3 um3 (7.4-10.4); Nucleated Red Blood Cells % 0.2; Platelet Count 242 10^3/ul (150-450); Red Blood Count 4.95 10^6/ul (4.00-5.40); Red Cell Distribution Width 14 % (10.5-15); White Blood Count 7.9 10^3/ul (3.5-10.8)
[2018-04-17 19:10] LABS: EGFR Non-African American 101.8 (>60)
[2018-04-17 19:31] LABS: Urine Appearance Clear; Urine Blood Negative (Negative); Urine Color Yellow; Urine Ketones Negative (Negative); Urine Protein Negative (Negative); Urine Specific Gravity 1.023 (1.010-1.030); Urine Urobilinogen Negative (Negative)
--- NOTE | 2018-04-17 19:42 | RAD ---
Indication: Bilateral flank pain. Comparison: January 18, 2018 CT. Technique: Renal ultrasound. Report: 10.6 x 5.1 x 6.6 cm RIGHT kidney. 11.1 x 5.8 x 6.2 cm LEFT kidney. Normal bilateral renal cortical thickness and echogenicity. No conspicuous stones or hydronephrosis. Negative for focal renal lesions. Negative for perinephric fluid. IMPRESSION: #. Negative renal ultrasound.
--- NOTE | 2018-04-17 20:20 | ED ---
GI/ HPI - HPI Summary HPI Summary: 32 year old male presents with back pain for the past week. He also been having rash for the past 2 weeks. The rash is not itchy. Is not causing pain. States has been spreading. Greatest in his armpit. No fevers. He admits to some urinary symptoms. Pain is greatest in his flanks. Denies any chest pain or shortness breath. No bowel pain. He admits to urinary frequency. No nausea or vomiting. No diarrhea or constipation. States he feels like he may have a urinary tract infection. Denies any history of urinary tract infection. denies any hematuria. No headache. - History of Current Complaint Chief Complaint: EDBackInjuryPain Time Seen by Provider: 04/17/18 18:23 Stated Complaint: BACK PAIN/RASH Pain Intensity: 3 - Additional Pertinent History Primary Care Physician: [id number] - Allergy/Home Medications Allergies/Adverse Reactions: Allergies Allergy/AdvReac Type Severity Reaction Status Date / Time peanut Allergy Intermediate Hives Verified 01/17/18 17:02 PEANUT BUTTER Allergy Hives Uncoded 10/04/17 07:07 PMH/Surg Hx/FS Hx/Imm Hx Endocrine/Hematology History: Denies: Hx Anticoagulant Therapy, Hx Diabetes, Hx Thyroid Disease Cardiovascular History: Denies: Hx Hypertension, Hx Pacemaker/ICD, Other Cardiovascular Problems/ Disorders Respiratory History: Denies: Other Respiratory Problems/Disorders GI History: Reports: Other GI Disorders - Appendectomy 2012 History: Denies: Hx Dialysis, Hx Renal Disease, Other Problems/Disorders Musculoskeletal History: Reports: Other Musculoskeletal History - Right medial meniscus tear, effusion, hernia repair x2 Denies: Hx Rheumatoid Arthritis, Hx Osteoporosis Sensory History: Denies: Hx Contacts or Glasses, Hx Hearing Aid Opthamlomology History: Denies: Hx Contacts or Glasses Neurological History: Denies: Hx CVA, Other Neuro Impairments/Disorders Psychiatric History: Denies: Hx Panic Disorder - Surgical History Surgery Procedure, Year, and Place: APPENDECTOMY - 2013. HERNIA x2 - as a child. Tonsillectomy Hx Anesthesia Reactions: No Infectious Disease History: No Infectious Disease History: Denies: Traveled Outside the [place] in Last 30 Days - Family History Known Family History: Positive: Unknown Negative: Hypertension, Diabetes - Social History Alcohol Use: Weekly Substance Use Type: Reports: None Smoking Status (MU): Heavy Every Day Tobacco Smoker Type: Cigarettes Amount Used/How Often: 1 ppd Length of Time of Smoking/Using Tobacco: 20 + years Have You Smoked in the Last Year: Yes Review of Systems Negative: Fever Negative: Chest Pain Negative: Shortness Of Breath Negative: Vomiting, Diarrhea, Nausea Positive: dysuria, flank pain Positive: Rash All Other Systems Reviewed And Are Negative: Yes Physical Exam Triage Information Reviewed: Yes Vital Signs On Initial Exam: Initial Vitals Temp Pulse Resp BP Pulse Ox 98.7 F 69 17 147/78 98 04/17/18 16:08 04/17/18 16:08 04/17/18 16:08 04/17/18 16:08 04/17/18 16:08 Vital Signs Reviewed: Yes Appearance: Positive: Well-Appearing Skin: Positive: Warm, Dry, Other - patch with flakes on legs, arms, armpit Head/Face: Positive: Normal Head/Face Inspection Eyes: Positive: Normal, Conjunctiva Clear ENT: Positive: Pharynx normal Respiratory/Lung Sounds: Positive: Clear to Auscultation, Breath Sounds Present Cardiovascular: Positive: Normal, RRR Abdomen Description: Positive: Soft, CVA Tenderness (R), CVA Tenderness (L), Other: - nontender abd Bowel Sounds: Positive: Present Musculoskeletal: Positive: Strength/ROM Intact - back, Other - neg SLR, good pulses, sensation grossly intact Neurological: Positive: Normal Psychiatric: Positive: Normal Diagnostics - Vital Signs Vital Signs Temp Pulse Resp BP Pulse Ox 04/17/18 20:00 74 97 04/17/18 19:45 67 125/71 98 04/17/18 19:16 66 98 04/17/18 19:15 64 138/70 98 04/17/18 16:08 98.7 F 69 17 147/78 98 - Laboratory Lab Results: Lab Results 04/17/18 04/17/18 04/17/18 Range/Units 18:44 18:44 19:17 WBC 7.9 (3.5-10.8) 10^3/ul RBC 4.95 (4.00-5.40) 10^6/ul Hgb 14.9 (14.0-18.0) g/dl Hct 44 (42-52) % MCV 88 (80-94) fL MCH 30 (27-31) pg MCHC 34 (31-36) g/dl RDW 14 (10.5-15) % Plt Count 242 (150-450) 10^3/ul MPV 7.3 L (7.4-10.4) um3 Neut % (Auto) 48.9 (38-83) % Lymph % (Auto) 38.6 (25-47) % [place] % (Auto) 7.6 H (0-7) % Eos % (Auto) 3.9 (0-6) % Baso % (Auto) 1.0 (0-2) % Absolute Neuts (auto) 3.9 (1.5-7.7) 10^3/ul Absolute Lymphs (auto) 3.1 (1.0-4.8) 10^3/ul Absolute Monos (auto) 0.6 (0-0.8) 10^3/ul Absolute Eos (auto) 0.3 (0-0.6) 10^3/ul Absolute Basos (auto) 0.1 (0-0.2) 10^3/ul Absolute Nucleated RBC 0 10^3/ul Nucleated RBC % 0.2 Sodium 138 (135-145) mmol/L Potassium 4.3 (3.5-5.0) mmol/L Chloride 106 (101-111) mmol/L Carbon Dioxide 28 (22-32) mmol/L Anion Gap 4 (2-11) mmol/L BUN 13 (6-24) mg/dL Creatinine 0.86 (0.67-1.17) mg/dL Est GFR ( Amer) 123.2 (>60) Est GFR (Non-Af Amer) 101.8 (>60) BUN/Creatinine Ratio 15.1 (8-20) Glucose 113 H (70-100) mg/dL Calcium 9.1 (8.6-10.3) mg/dL Total Bilirubin 0.20 (0.2-1.0) mg/dL AST 14 (13-39) U/L ALT 13 (7-52) U/L Alkaline Phosphatase 134 H (34-104) U/L C-Reactive Protein 3.93 (<8.01) mg/L Total Protein 6.4 (6.4-8.9) g/dL Albumin 4.3 (3.2-5.2) g/dL Globulin 2.1 (2-4) g/dL Albumin/Globulin Ratio 2.0 (1-3) Lipase 22 (11.0-82.0) U/L Urine Color Yellow Urine Appearance Clear Urine pH 6.0 (5-9) Ur Specific [place] 1.023 (1.010-1.030) Urine Protein Negative (Negative) Urine Ketones Negative (Negative) Urine Blood Negative (Negative) Urine Nitrate Negative (Negative) Urine Bilirubin Negative (Negative) Urine Urobilinogen Negative (Negative) Ur Leukocyte Esterase Negative (Negative) Urine Glucose Negative (Negative) Result Diagrams: 04/17/18 18:44 04/17/18 18:44 Lab Statement: Any lab studies that have been ordered have been reviewed, and results considered in the medical decision making process. - Ultrasound No standard instances Ultrasound Interpretation Completed By: Radiologist Summary of Ultrasound Findings: normal GIGU Course/Dx - Course Course Of Treatment: 32 year old male presents with back pain for the past week. He also been having rash for the past 2 weeks. The rash is not itchy. Is not causing pain. States has been spreading. Greatest in his armpit. No fevers. He admits to some urinary symptoms. Pain is greatest in his flanks. Denies any chest pain or shortness breath. No bowel pain. He admits to urinary frequency. No nausea or vomiting. No diarrhea or constipation. States he feels like he may have a urinary tract infection. Denies any history of urinary tract infection. denies any hematuria. No headache. on exam nontender abd. pos CVA tenderness. rash is patch like and scaling. appears most like a tinea so will treat with fluconazole. wbc normal. urine normal. u/s normal. discussed likely muscular back pain. patient understand and agrees with plan. - Diagnoses Differential Diagnoses - Male: Ureteral Calculi, Urinary Tract Infection, Other - tinea Provider Diagnoses: Back pain, Rash Discharge - Sign-Out/Discharge Documenting (check all that apply): Patient Departure - Discharge Plan Condition: Good Disposition: HOME Prescriptions: Ketoconazole 2 % EX DAILY #1 sha Patient Education Materials: Tinea Corporis (ED) Referrals: [facility] [Outside] Additional Instructions: est care with primary apply ketoconazole shampoo to area leaving on for 5 minutes and rinse until improves Use ibuprofen or Tylenol for pain every 6 hours ice/heat area, move as much as possible Follow up with primary within 5 days Return to ED if develop any new or worsening symptoms - Billing Disposition and Condition Condition: GOOD Disposition: Home
[2018-04-17 20:37] VITALS: BP 136/71
--- NOTE | 2018-04-18 17:43 | HP ---
HISTORY AND PHYSICAL UPDATE: DATE OF ADMISSION: 04/17/18 - EMERGENCY DEPT HISTORY OF PRESENT ILLNESS: Mr. Aguilar is a 32-year-old gentleman who was admitted 2 days prior with a diagnosis of acute appendicitis. He went to the operating room and underwent a laparoscopic appendectomy with Dr. Gilbert. Please see separate report for details. He was discharged home and presented to the emergency room the very next day with complaints of abdominal pain and fever. He underwent a CT scan which was reviewed and the patient was admitted for pain control and seen by Dr. Gilbert later on in the day. PAST MEDICAL HISTORY: Unchanged. PAST SURGICAL HISTORY: Laparoscopic appendectomy at an outside institution 4 years ago followed by laparoscopic completion appendectomy 2 days prior. MEDICATIONS: Pain medication only. No routine meds. ALLERGIES: PEANUTS. PHYSICAL EXAMINATION GENERAL: The patient was seen to be hemodynamically stable. ABDOMEN: Soft, nondistended, and minimally tender. IMPRESSION: Pain, status post laparoscopic appendectomy. PLAN: Admission, IV fluids, and serial abdominal exams. [id number]/[facility] #: [id number] MYLA
== END 2018-04-17 20:30 | disposition home or self-care (01) ==
LOC: ED 16:00
DX: M54.9 Dorsalgia, unspecified (principal); R21 Rash and other nonspecific skin eruption; F17.210 Nicotine dependence, cigarettes, uncomplicated
CPT/HCPCS: 36415; 76775; 80053; 81003; 83690; 85025; 86140; 99282